=== PATIENT | female | born 1995 | race Caucasian/White ===

== ENCOUNTER → 2021-09-21 | Outpatient (CLI) | payer OTHER | LOC: SPEC 12:32 | PROVIDERS: ATTEND Obstetrics & Gynecology | DX: O09.71 Supervision of high risk pregnancy due to social problems, first trimester (principal) | CPT/HCPCS: 87086; 87491; 87591; 87661 ==

== ENCOUNTER → 2022-01-14 | Outpatient (CLI) | payer OTHER ==
--- NOTE | 2022-01-14 14:25 | RAD ---
EXAM: OBSTETRIC ULTRASOUND. HISTORY: anatomy survey. COMPARISON: None. FINDINGS: Sonographic evaluation of the uterus, fetus and maternal pelvis was performed. There is a single fetus in vertex presentation. heart rate is 152 bpm. Estimated gestational ag e based on measurements is 21 weeks 5 days. Head circumference, biparietal diameter, abdominal circum ference and femur length are commensurate. The placenta is posterior. There is no evidence of placenta previa. Amniotic fluid volume appears nor mal with amniotic fluid index 15 cm. The cervix is closed and measures 4.5 cm. Images of the spine reveal no clear defects. The stomach and bladder are visualized. Images of the ki dneys reveal no hydronephrosis. One renal collecting system measures 3 mm, within normal limits. The left and right ventricular outflow tracts are visualized. The heart is four-chamber on real-time scan cy[place]ney, but this is not well demonstrated on these images. The diaphragm is complete. extremities appear normal. The stomach and bladder are visualized. The cord is three-vessel. There is no hydroce phalus. The choroid plexus appears normal. The posterior fossa appears normal. Nose/lip morphology ap pears normal. The maternal adnexa are obscured by positioning currently. IMPRESSION: 1. Single fetus in vertex presentation. heart rate 152 bpm. Estimated gestational age based on measurements 21 weeks 5 days. Electronically signed by: Josephine Christensen MD (01/14/2022 2:23 PM) [facility]
== END ==
LOC: US 10:53
PROVIDERS: ATTEND Obstetrics & Gynecology
DX: O32.8XX0 Maternal care for other malpresentation of fetus, not applicable or unspecified (principal); Z3A.21 21 weeks gestation of pregnancy
CPT/HCPCS: 76805